=== PATIENT | female | born 2000 | race African-American/Black ===

== ENCOUNTER 2025-10-16 15:35 | Emergency (ER) | payer OTHER, SELFPAY ==
--- OUTSIDE RECORDS SUMMARY | 2025-10-15 21:42 | XMS_ITS | Continuity of Care Document ---
Author Organization [facility] ter Address [address] [place] [id number]- Care Team Providers Care Corporate Learning Consultant Name Role Phone Lisa Gutierrez MD Primary Care Physician Encounter [facility] Date(s): 10/15/25 - 10/15/[address] [address]- Discharge Disposition: A-D/C Walkout Attending Physician: Not on Staff, Attending MD Admitting Physician: Not on Staff, Admitting MD Referring Physician: Not on Staff, Referring MD Encounter Type: Disch ES Allergies, Adverse Reactions, Alerts No Known Medication Allergies Immunizations Given and Recorded Vaccine Date Status Refusal Reason diphtheria/tetanus/pertussis, acel(DTaP) 05/20/19 Recorded meningococcal group B vaccine 09/05/17 Recorded meningococcal group B vaccine 05/28/16 Recorded Hepatitis A Pediatric Vaccine 05/18/15 Recorded Human Papillomavirus Vaccine 02/06/13 Recorded Human Papillomavirus Vaccine 10/10/12 Recorded Meningococcal Conjugate Vaccine 10/10/12 Recorded tetanus/diphtheria/pertussis, acel(Tdap) 10/10/12 Recorded Varicella Virus Vaccine 03/14/08 Recorded Varicella Virus Vaccine 04/12/00 Recorded Measles/Mumps/Rubella Virus Vaccine 04/11/03 Recor ded Measles/Mumps/Rubella Virus Vaccine 04/12/00 Recor ded Medications Aerochamber See Instructions, PRN, # 1 each, Refills 0, Tot. Refills 0, Maintenance, Wheezing/Shortness of Breath, 1 units, 11/24/21 2:21:00 PM EST, Supply, 160, cm, 11/02/21 17:45:00 EST, Height, 91.1, kg, 11/02/21 17:45:00 EST, Dry Weight Start Date: 11/24/21 Status: Ordered Medication Dispense Status: Completed Quantity: 1.0 Unit: each Total Allowed Fills: 1 Fills Dispensed: 0 buPROPion 150 mg/24 hours (XL) oral tablet, extended release 1 tablet = 150 mg, By Mouth, Every 24 hours, take with the 300xl for a total of 450 xl, # 90 tablet, 3 Refills, Maintenance, 03/20/25 8:53:00 AM EDT, ER Tablet, [facility] #[id number], Partial fill upon patient request if the prescription is for a schedule II opioid drug., 1 tablet By Mouth Every 24 hours,Instr:take with the 300xl for a total of 450 xl, 160, cm, 03/20/25 8:19:00 EDT, Height Start Date: 03/20/25 Status: Ordered Medication Dispense Status: Completed Quantity: 90.0 Unit: tablet Total Allowed Fills: 4 Fills Dispensed: 0 buPROPion 300 mg/24 hours (XL) oral tablet, extended release 1 tablet, By Mouth, Daily, # 90 tablet, 1 Refills, Maintenance, 08/28/25 1:20:00 PM EDT, [facility] #[id number], 160, cm, 03/20/25 8:19:00 EDT, Height Start Date: 08/28/25 Status: Ordered Medication Dispense Status: Completed Quantity: 90.0 Unit: tablet Total Allowed Fills: 2 Fills Dispensed: 0 melatonin 5 mg oral tablet 1 tablet = 5 mg, By Mouth, Daily at bedtime, # 120 tablet, 0 Refills, Maintenance, 06/25/24 5:05:00 PM EDT, [facility] #[id number], Partial fill upon patient request if the prescription is for a schedule II opioid drug., 160, cm, 06/25/24 16:08:00 EDT, Height, 86.1, kg, 07/11/22 8:21:00 EDT, Dry Weight Start Date: 06/25/24 Status: Ordered Medication Dispense Status: Completed Quantity: 120.0 Unit: tablet Total Allowed Fills: 1 Fills Dispensed: 0 naproxen 500 mg oral tablet 1 tablet, By Mouth, 2 times a day, PRN NEEDED FOR PAIN, # 30 tablet, 1 Refills, Maintenance, 09/12/25 8:09:00 AM EDT, [facility] #[id number], 160, cm, 03/20/25 8:19:00 EDT, Height Start Date: 09/12/25 Status: Ordered Medication Dispense Status: Completed Quantity: 30.0 Unit: tablet Total Allowed Fills: 2 Fills Dispensed: 0 omeprazole 10 mg oral enteric coated capsule 1 capsule, By Mouth, Daily, # 90 capsule, 0 Refills, Maintenance, 10/26/23 11:09:00 AM EST, [facility] #[id number], 160, cm, 03/16/23 8:34:00 EDT, Height, 86.1, kg, 07/11/22 8:21:00 EDT, Dry Weight Start Date: 10/26/23 Status: Ordered Medication Dispense Status: Completed Quantity: 90.0 Unit: capsule Total Allowed Fills: 1 Fills Dispensed: 0 Multivitamins with Folic Acid 1 mg oral tablet 1 tablet, By Mouth, Daily, # 90 tablet, 2 Refills, Maintenance, 10/04/22 11:01:00 AM EST, Tablet, [facility] #[id number], Partial fill upon patient request if the prescription is for a schedule II opioid drug., 1 tablet By Mouth Daily, 160, cm, 07/19/22 11:25:00 EDT, Height, 86.1, kg, 07/11/22 8:21:00 EDT, Dry Weight Start Date: 10/04/22 Status: Ordered Medication Dispense Status: Completed Quantity: 90.0 Unit: tablet Total Allowed Fills: 3 Fills Dispensed: 0 ProAir HFA 90 mcg/inh inhalation aerosol 6 puffs, Inhalation, Every 6 hours, PRN as needed for wheezing, May use 6 puffs every 4 to 6 hours as needed for cough, wheeze, shortness of breath. Use with spacer chamber, # 1 each, 1 Refills, Maintenance, 11/27/21 6:01:00 PM EST, Aerosol, [facility] #[id number], Partial fill upon patient request if the prescription is for a schedule II opioid drug., 6 puffs Inhalation Every 6 hours,PRN:as needed for wheezing,Instr:May use 6 puffs every 4 to 6 hours as needed for cough, wheeze, shortness of breath. ; Use with spacer chamber, 160, cm, 11/02/21 17:45:00 EST, Height, 91.1, kg, 11/02/21 17:45:00 EST, Dry Weight Start Date: 11/27/21 Status: Ordered Medication Dispense Status: Completed Quantity: 1.0 Unit: each Total Allowed Fills: 2 Fills Dispensed: 0 right wrist brace right wrist brace, See Instructions, # 1 kit, Refills 0, Tot. Refills 0, Maintenance, Carpal tunnelsyndrome G56.00 wear on right wrist overnight while asleep, 06/25/24 5:19:00 PM EDT, Supply Start Date: 06/25/24 Status: Ordered Medication Dispense Status: Completed Quantity: 1.0 Unit: kit Total Allowed Fills: 1 Fills Dispensed: 0 sertraline 100 mg oral tablet 2 tablet, By Mouth, Daily, # 180 tablet, 0 Refills, Maintenance, 09/08/25 2:13:00 PM EDT, [facility] #[id number], 160, cm, 03/20/25 8:19:00 EDT, Height Start Date: 09/08/25 Status: Ordered Medication Dispense Status: Completed Quantity: 180.0 Unit: tablet Total Allowed Fills: 1 Fills Dispensed: 0 Mental Status Mental Status Assessment Assessment Assessment Component Result Effecti ve Date Devaughn coma score total 15 Body height 160 10/15/25 Mental Status Assessment Assessment Assessment Component Result Effecti ve Date Campbell coma score total 15 Problem List Condition Confirmation Course Effective Dates Status Health St atus Informant Allergic rhinitis Confirmed Active Generalized anxiety disorder Confirmed Active Major depressive disorder Confirmed Active Mild intermittent asthma Confirmed Active Anxiety and depression Confirmed Active Obese class I Confirmed Active Vital Signs Most recent to oldest [Reference Range]: 1 2 Height 160 cm (10/15/25 5:58 PM) 160 cm (10/15/25 5:53 PM) Oxygen Saturation [94-100 %] 98 % (10/15/25 5:58 PM) Pulse Rate [55-90 bpm] 86 bpm (10/15/25 5:58 PM) Blood Pressure [90-138/55-84 mm Hg] 122/ 66mm Hg (10/15/25 5:58 PM) Respiratory Rate [16-30 br/min] 20 br/mi n (10/15/25 5:58 PM) Temperature [96.8-100.4 DegF] 98.6 DegF (10/15/25 5:58 PM) Mode of Delivery (Oxygen) Room air (10/15/25 5:58 PM) Temperature Route Oral (10/15/25 5:58 PM) Social History Social History Type Response Tobacco Use: marijuana. Sexual Orientation Self described orien tation: ; Lesbian, cruz or homosexual Sex Sex Representation Female (finding) Status Not Patient Care team information Care Team Personnel Name: Lisa Gutierrez MD Position: [facility] Resident Member Role: PCP Address: [address] [place] [id number] Telecom: Care Team Related Persons Name: February Name: ADAM GRIMM Name: ANGIE GRIMM Insurance Providers Guarantor name: SHAHEEN GRIMM Health Plan Information #: 1 Payer: [employer] Payer Identifier: KAREN Member Number: [id number] Group Number: [id number] Subscriber Identifier: [id number] Relationship to Subscriber: self Coverage Type: Self-pay (Includes applicants for insurance and Medicaid applicants) Coverage Verification Date: KAREN Telecom: KAREN Address: NA
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
[2025-10-16 15:50] VITALS: BP 113/57; PULSE 89; RESP 20; TEMP 36.2; O2SAT 96; BMI 31.7
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
[2025-10-16 16:46] LABS: MANUAL DIFF FLAG NO
[2025-10-16 16:47] LABS: Hematocrit 36.7 % (37.0-47.0); Hemoglobin 12.2 g/dl (12.0-16.0); Imm Gran Abs Auto 0.01 X10*3/uL (0.00-0.03); Imm Gran Pct Auto 0.2 % (0.0-0.4); Lymphocytes Absolute Auto 1.8 X10*3/uL (1.2-4.9); Mean Corpuscular HGB Conc 33.2 g/dl (31.0-35.0); Mean Corpuscular Hemoglobin 30.0 pg (27.0-33.0); Mean Corpuscular Volume 90.4 fL (80.0-98.0); NRBC Abs Auto 0.000 X10*3/uL (0.0-0.012); NRBC Pct Auto 0.0 /100WBC (0.0-0.2); Platelet Count 214 X10*3/uL (160-400); Red Blood Count 4.06 X10*6/uL (4.20-5.50); White Blood Count 6.5 X10*3/uL (4.8-10.8)
[2025-10-16 16:49] LABS: Appearance Urine Clear; Glucose Urine UA Negative (Negative); PH 7.0 (5.0-9.0); Specific Gravity - Urine 1.020 (1.005-1.025)
[2025-10-16 17:14] LABS: Alanine Aminotransferase 21 U/L (0-31); Albumin Level 4.7 g/dL (3.5-5.0); Alkaline Phosphatase 59 U/L (39-117); Anion Gap 11 (12-20); Aspartate Amino Transferase 20 U/L (5-31); Blood Urea Nitrogen 7 mg/dL (9-16); Calcium 9.2 mg/dL (8.4-10.2); Carbon Dioxide 25 mmol/L (22-29); Chloride 107 mmol/L (96-108); Creatinine Clr Calc Pharmacy 126.4; Estimated Glomerular Filt Rate > 60; Potassium 3.9 mmol/L (3.3-5.1); Sodium 139 mmol/L (135-145); Total Protein 7.6 g/dL (6.5-8.0)
[2025-10-16 19:17] VITALS: BP 112/63; PULSE 101; RESP 16; O2SAT 96
[2025-10-16 20:13] VITALS: BP 112/63; PULSE 101; RESP 16; TEMP -17.7; TEMP 0; O2SAT 96
--- OUTSIDE RECORDS SUMMARY | 2025-10-16 20:59 | XMS_ITS | Clinical Summary ---
Author Organization [facility] Address [address] [place] [address] Care Team Providers Care Core Paster Name Role Phone Unavailable Primary Care Provider Unavailabl e Social History Tobacco Use Types Packs/Day Years Used Date Smoking Tobacco: Never Assessed Comments Unknown Sex and Gender Information Value Date Recorded Sex Assigned at Not on file Legal Sex Female 7:58 AM EST Gender Identity Not on file Sexual Orientation Not on file Plan of Treatment Health Maintenance Due Date Last Done Comments HPV Vaccines (1 - 3-dose series) 2014 DTaP,Tdap,and Td Vaccines (1 - Tdap) 2018 Hepatitis B Vaccines (1 of 3 - 19+ 3-dose series) 2018 Cervical Cancer Screening: P ap Smear 2020 Depression Screening 11/27/2024 COVID-19 Vaccine (1 - 2024-2 6 season) 2025 Influenza Vaccine (#1) 2025 RSV Immunization Adult Patie nts (1 - 1-dose 75+ series) 2074 HIB Vaccines Aged Out No longer eligi ble based on patient's age to complete this topic Hepatitis A Vaccines Aged Out No long er eligible based on patient's age to complete this topic IPV Vaccines Aged Out No longer eligi ble based on patient's age to complete this topic MMR Vaccines Aged Out No longer eligi ble based on patient's age to complete this topic Meningococcal ACWY Vaccine Aged Out N o longer eligible based on patient's age to complete this topic Meningococcal B Vaccine Aged Out No l onger eligible based on patient's age to complete this topic Pneumococcal Vaccine: Pediat rics (0 to 5 Years) and At-Risk Patients (6 to 49 Years) Aged Out No longer eligible b ased on patient's age to complete this topic RSV Immunization Patients Un ihsan 20 months Aged Out No longer eligible b ased on patient's age to complete this topic Varicella Vaccines Aged Out No longer eligible based on patient's age to complete this topic
== END 2025-10-16 20:14 | disposition home or self-care (01) ==
PROVIDERS: Physician Assistant; Emergency Provider Emergency Medicine
DX: S70.02XA Contusion of left hip, initial encounter (principal); V43.62XA Car passenger injured in collision with other type car in traffic accident, initial encounter; Y93.9 Activity, unspecified; Y92.410 Unspecified street and highway as the place of occurrence of the external cause; Y99.9 Unspecified external cause status; R10.22 Pelvic and perineal pain left side; M25.552 Pain in left hip
CPT/HCPCS: 36415; 73502; 80053; 81003; 84702; 85025; 99283

== ENCOUNTER → 2025-10-16 16:08 | Outpatient (BNV) | payer OTHER, SELFPAY | PROVIDERS: Visit Provider Radiology Diagnostic Radiology | DX: M25.552 Pain in left hip (principal); Z04.3 Encounter for examination and observation following other accident | CPT/HCPCS: 73502 ==